=== PATIENT | female | born 1960 | race Caucasian/White ===

== ENCOUNTER 2025-02-17 09:12 | Inpatient (IN) ==
[2025-02-17 10:09] LABS: Basophils # (auto) 0.09 K/uL (0.00-0.20); Basophils % (auto) 0.9 %; Eosinophils # (auto) 0.08 K/uL (0.00-0.50); Eosinophils % (auto) 0.8 %; Hematocrit (blood only) 43.9 % (37.0-47.0); Hemoglobin 14.6 g/dl (12.0-16.0); Immature Granulocytes # (auto) 0.02 K/uL (0.01-0.20); Immature Granulocytes % (auto) 0.2 %; Lymphocytes # (auto) 4.76 K/uL (1.20-3.40); Lymphocytes % (auto) 46.3 %; Mean Corpuscular Hemoglobin 31.7 pg (25.0-34.0); Mean Corpuscular Hgb Conc 33.3 g/dL (32.0-36.0); Mean Corpuscular Volume 95.2 fL (80.0-100.0); Mean Platelet Volume 11.4 fL (9.4-12.4); Monocytes # (auto) 1.09 K/uL (0.11-0.59); Monocytes % (auto) 10.6 %; Neutrophils # (auto) 4.25 K/uL (1.40-6.50); Neutrophils % (auto) 41.2 %; Platelet Count 286 K/uL (130-400); RDW Coefficient of Variation 13.8 % (11.5-14.5); RDW Standard Deviation 48.7 fL (36.4-46.3); Red Blood Count 4.61 M/uL (4.20-5.40); White Blood Count 10.29 K/ul (4.8-10.8)
--- NOTE | 2025-02-17 10:11 | Electrocardiogram Report ---
Test Reason : Blood Pressure : */* mmHG Vent. Rate : 94 BPM Atrial Rate : 94 BPM P-R Int : 156 ms QRS Dur : 96 ms QT Int : 316 ms P-R-T Axes : 64 0 45 degrees QTcB Int : 395 ms Normal sinus rhythm Cannot rule out Anterior infarct , age undetermined Nonspecific ST abnormality Abnormal ECG When compared with ECG of 14-Dec-2009 09:30, No significant change Confirmed by Vaibhav Monterroso ([id number]) on 02/17/2025 10:10:53 AM Referred By: Confirmed By: Vaibhav Monterroso
--- NOTE | 2025-02-17 10:30 | Emergency Department Note ---
Impression & Plan SVT (supraventricular tachycardia), Elevated troponin ED Provider Note NAME: ALISSON CAMILO AGE: 64 SEX: F : 1960 ARRIVES VIA: Walk-In INFORMANT: Patient, ED PROVIDER(S): Shanika Hampton MD CHIEF COMPLAINT: Tachycardia, palpitations HPI: This is a 64-year-old female presenting for tachycardia and palpitations. Patient reports that she began having mid back pain about 3 to 4 days ago. This in her upper back between her shoulder blades. It is somewhat left-sided but mostly in the center. It is a sharp hot sensation. She reports no anterior chest pain with this. She reports no shortness of breath. Today about 1 hour prior to arrival, she noticed significant tachycardia and palpitations. This never happened to this extent. She has had simple palpitations lasting few seconds, this has persisted. She is not feel short of breath however. No current chest pain. ROS: See above HPI for pertinent positives & negatives. A total of 10 systems reviewed and were otherwise negative. PAST MEDICAL HISTORY: See Below PAST SURGICAL HISTORY: See Below FAMILY HISTORY: See Below SOCIAL HISTORY: See Below HOME MEDICATIONS: See Below ALLERGIES: See Below VITALS: See Below PHYSICAL EXAMINATION: General: resting comfortably in no acute distress Head: Normocephalic and atraumatic Eyes: Normal inspection, extraocular muscles intact Ear, nose, throat: Normal external exam Neck: Normal range of motion Respiratory: lungs clear to auscultation bilaterally Cardiovascular: Regular rate/rhythm, no murmur GI: soft, nontender, no guarding or rebound Extremities: nontender, moves all extremities Neuro: The patient awake and alert, appropriately conversive, no focal deficits, symmetric faces Skin: Warm, dry, and intact MEDICAL DECISION MAKING: This is a 64-year-old female present for tachycardia/palpitations. Patient is currently in SVT rhythm between 180 and 205. We have her maneuvers attempted without success. -Patient has no cardiac history or previous episodes of tachycardia/ACS/PE. -Will trial adenosine, 6 mg. Verbal consent obtained, patient then given 6 mg IV adenosine with conversion to sinus rhythm. -Patient now feels much better but still has this back pain. Will do screening workup that includes blood work, electrolytes, EKG and chest x-ray. -Bloodwork is reviewed showing no significant leukocytosis, anemia, electrolyte or creatinine abnormality -Repeat troponin is elevated at 16.8, up from previous of 4 -Patient then went back into SVT at a rate between 180 and 200. -Give another 6 mg of adenosine with sinus conversion -With patient having 2 episodes of SVT, elevated troponin, back pain for the past few days, will admit for cardiac and further testing workup Differential diagnosis: SVT, tachydysrhythmia, ACS Independent History obtained from: Diagnostics interpreted by me: ECG: ECG independently interpreted by me with SVT, rate of 179, normal QRS, normal QTc, no ST segment elevations consistent with STEMI criteria, ST depressions in the inferolateral leads Second ECG independently interpreted by me with normal sinus rhythm, rate of 94, normal axis, normal ME, normal QRS, normal QTc, no ST segment elevations consistent with STEMI criteria, resolved ST depressions Cardiac Monitoring: An order was placed for continuous cardiac monitoring. The monitor shows a rate of 70 with sinus rhythm. Critical Care Note: I have personally spent 45 minutes of critical care time in the direct management of this patient. This includes bedside care, interpretation of diagnostic studies, and testing, discussion with consultants, patient, and family members, and other required patient management activities. This 45 minutes is in excess of all separately billable procedures. Past Med/Surg History Problem List (Updated 02/17/25 @ 17:08 by Shanika Hampton MD) Elevated troponin (Acute) SVT (supraventricular tachycardia) (Acute) Medical History (Updated 02/17/25 @ 17:08 by Shanika Hampton MD) No pertinent past medical history Surgical History (Updated 02/17/25 @ 15:18 by Pieter Jensen MD) History of removal of cyst Lower back H/O emergency section Social History Smoking Status: Never smoker Preferred Language: Urdu Feels Safe at Home: Yes Allergies Allergies Allergy/AdvReac Type Severity Reaction Status Date / Time No Known Allergies Allergy Verified 02/17/25 15:14 Home Meds Home Medications Medication Instructions Recorded Confirmed aspirin 325 mg tablet 325 mg PO DIRECTED PRN PAIN/OJHNSON 02/17/25 02/17/25 Results & Data (ED) Vital Signs Vital Signs - 24 hr 02/17/25 09:15 02/17/25 09:23 02/17/25 09:24 Temperature 36.6 C Temperature Source Temporal Artery Scan Pulse Rate 180 H 167 H Pulse Rate [Apical] Pulse Rate from SpO2 Sensor Respiratory Rate 20 Respiratory Effort / Characteristics Spontaneous Short of Breath Respiratory Depth Normal Blood Pressure 148/80 H 170/111 H Blood Pressure [Right Arm] Blood Pressure Mean 102 140 Blood Pressure Mean [Right Arm] Pulse Oximetry 98 Oxygen Delivery Method Room Air Sepsis Recent Fever Within 48 Hours No Sepsis New/Unexplained Change in Mental Status N/A Sepsis Action Taken by Nursing No Action Required 02/17/25 09:24 02/17/25 09:30 02/17/25 09:30 Temperature Temperature Source Pulse Rate 183 H 100 H Pulse Rate [Apical] Pulse Rate from SpO2 Sensor 181 H 101 H Respiratory Rate 19 14 Respiratory Effort / Characteristics Respiratory Depth Blood Pressure 170/90 H Blood Pressure [Right Arm] Blood Pressure Mean 118 Blood Pressure Mean [Right Arm] Pulse Oximetry 99 99 Oxygen Delivery Method Sepsis Recent Fever Within 48 Hours Sepsis New/Unexplained Change in Mental Status Sepsis Action Taken by Nursing 02/17/25 09:30 02/17/25 09:34 02/17/25 09:43 Temperature Temperature Source Pulse Rate 75 Pulse Rate [Apical] Pulse Rate from SpO2 Sensor Respiratory Rate Respiratory Effort / Characteristics Respiratory Depth Blood Pressure 170/90 H Blood Pressure [Right Arm] Blood Pressure Mean 118 Blood Pressure Mean [Right Arm] Pulse Oximetry 100 Oxygen Delivery Method Room Air Sepsis Recent Fever Within 48 Hours Sepsis New/Unexplained Change in Mental Status Sepsis Action Taken by Nursing 02/17/25 09:45 02/17/25 09:45 02/17/25 09:45 Temperature Temperature Source Pulse Rate 75 Pulse Rate [Apical] Pulse Rate from SpO2 Sensor 75 Respiratory Rate 15 Respiratory Effort / Characteristics Respiratory Depth Blood Pressure 139/78 139/78 Blood Pressure [Right Arm] Blood Pressure Mean 81 81 Blood Pressure Mean [Right Arm] Pulse Oximetry 99 Oxygen Delivery Method Sepsis Recent Fever Within 48 Hours Sepsis New/Unexplained Change in Mental Status Sepsis Action Taken by Nursing 02/17/25 09:51 02/17/25 09:55 02/17/25 09:57 Temperature Temperature Source Pulse Rate 69 Pulse Rate [Apical] 69 Pulse Rate from SpO2 Sensor 69 Respiratory Rate 18 18 Respiratory Effort / Characteristics Non-Labored Respiratory Depth Normal Blood Pressure Blood Pressure [Right Arm] 139/78 Blood Pressure Mean Blood Pressure Mean [Right Arm] 98 Pulse Oximetry 99 98 99 Oxygen Delivery Method Room Air Room Air Sepsis Recent Fever Within 48 Hours Sepsis New/Unexplained Change in Mental Status Sepsis Action Taken by Nursing 02/17/25 10:00 02/17/25 10:00 02/17/25 10:00 Temperature Temperature Source Pulse Rate Pulse Rate [Apical] Pulse Rate from SpO2 Sensor Respiratory Rate Respiratory Effort / Characteristics Respiratory Depth Blood Pressure 144/73 H 144/73 H 144/73 H Blood Pressure [Right Arm] Blood Pressure Mean 98 98 98 Blood Pressure Mean [Right Arm] Pulse Oximetry Oxygen Delivery Method Sepsis Recent Fever Within 48 Hours Sepsis New/Unexplained Change in Mental Status Sepsis Action Taken by Nursing 02/17/25 10:03 02/17/25 10:09 02/17/25 10:15 Temperature Temperature Source Pulse Rate 74 70 Pulse Rate [Apical] Pulse Rate from SpO2 Sensor 72 71 Respiratory Rate 15 15 Respiratory Effort / Characteristics Respiratory Depth Blood Pressure 138/77 Blood Pressure [Right Arm] Blood Pressure Mean 105 Blood Pressure Mean [Right Arm] Pulse Oximetry 98 98 Oxygen Delivery Method Sepsis Recent Fever Within 48 Hours Sepsis New/Unexplained Change in Mental Status Sepsis Action Taken by Nursing 02/17/25 10:27 02/17/25 10:30 02/17/25 10:30 Temperature Temperature Source Pulse Rate 66 Pulse Rate [Apical] Pulse Rate from SpO2 Sensor 65 Respiratory Rate 19 Respiratory Effort / Characteristics Respiratory Depth Blood Pressure 133/77 133/77 Blood Pressure [Right Arm] Blood Pressure Mean 93 93 Blood Pressure Mean [Right Arm] Pulse Oximetry 99 Oxygen Delivery Method Sepsis Recent Fever Within 48 Hours Sepsis New/Unexplained Change in Mental Status Sepsis Action Taken by Nursing 02/17/25 10:39 02/17/25 10:45 02/17/25 10:48 Temperature Temperature Source Pulse Rate 63 62 Pulse Rate [Apical] 62 Pulse Rate from SpO2 Sensor 62 63 Respiratory Rate 21 20 20 Respiratory Effort / Characteristics Non-Labored Respiratory Depth Normal Blood Pressure Blood Pressure [Right Arm] 133/75 Blood Pressure Mean Blood Pressure Mean [Right Arm] 94 Pulse Oximetry 98 98 99 Oxygen Delivery Method Room Air Sepsis Recent Fever Within 48 Hours Sepsis New/Unexplained Change in Mental Status Sepsis Action Taken by Nursing 02/17/25 11:00 02/17/25 11:00 02/17/25 11:00 Temperature Temperature Source Pulse Rate 58 L Pulse Rate [Apical] Pulse Rate from SpO2 Sensor 58 L Respiratory Rate 14 Respiratory Effort / Characteristics Respiratory Depth Blood Pressure 135/79 135/79 Blood Pressure [Right Arm] Blood Pressure Mean 110 110 Blood Pressure Mean [Right Arm] Pulse Oximetry 98 Oxygen Delivery Method Sepsis Recent Fever Within 48 Hours Sepsis New/Unexplained Change in Mental Status Sepsis Action Taken by Nursing 02/17/25 11:15 02/17/25 11:15 02/17/25 11:21 Temperature Temperature Source Pulse Rate 59 L 60 Pulse Rate [Apical] Pulse Rate from SpO2 Sensor 59 L 62 Respiratory Rate 13 19 Respiratory Effort / Characteristics Respiratory Depth Blood Pressure 135/80 Blood Pressure [Right Arm] Blood Pressure Mean 106 Blood Pressure Mean [Right Arm] Pulse Oximetry 98 99 Oxygen Delivery Method Sepsis Recent Fever Within 48 Hours Sepsis New/Unexplained Change in Mental Status Sepsis Action Taken by Nursing 02/17/25 11:30 02/17/25 11:42 02/17/25 11:45 Temperature Temperature Source Pulse Rate 56 L Pulse Rate [Apical] Pulse Rate from SpO2 Sensor 57 L Respiratory Rate 17 Respiratory Effort / Characteristics Respiratory Depth Blood Pressure 135/79 132/78 Blood Pressure [Right Arm] Blood Pressure Mean 106 96 Blood Pressure Mean [Right Arm] Pulse Oximetry 98 Oxygen Delivery Method Sepsis Recent Fever Within 48 Hours Sepsis New/Unexplained Change in Mental Status Sepsis Action Taken by Nursing 02/17/25 11:45 02/17/25 11:45 02/17/25 11:54 Temperature Temperature Source Pulse Rate 53 L Pulse Rate [Apical] Pulse Rate from SpO2 Sensor 54 L Respiratory Rate 20 Respiratory Effort / Characteristics Respiratory Depth Blood Pressure 132/78 132/78 Blood Pressure [Right Arm] Blood Pressure Mean 96 96 Blood Pressure Mean [Right Arm] Pulse Oximetry 100 Oxygen Delivery Method Sepsis Recent Fever Within 48 Hours Sepsis New/Unexplained Change in Mental Status Sepsis Action Taken by Nursing 02/17/25 11:57 02/17/25 12:00 02/17/25 12:00 Temperature Temperature Source Pulse Rate 54 L Pulse Rate [Apical] Pulse Rate from SpO2 Sensor 53 L Respiratory Rate 15 Respiratory Effort / Characteristics Respiratory Depth Blood Pressure 144/83 H 144/83 H Blood Pressure [Right Arm] Blood Pressure Mean 111 111 Blood Pressure Mean [Right Arm] Pulse Oximetry 99 Oxygen Delivery Method Sepsis Recent Fever Within 48 Hours Sepsis New/Unexplained Change in Mental Status Sepsis Action Taken by Nursing 02/17/25 12:03 02/17/25 12:15 02/17/25 12:30 Temperature Temperature Source Pulse Rate 61 Pulse Rate [Apical] Pulse Rate from SpO2 Sensor 62 Respiratory Rate 23 Respiratory Effort / Characteristics Respiratory Depth Blood Pressure 146/80 H 144/80 H Blood Pressure [Right Arm] Blood Pressure Mean 101 99 Blood Pressure Mean [Right Arm] Pulse Oximetry 100 Oxygen Delivery Method Sepsis Recent Fever Within 48 Hours Sepsis New/Unexplained Change in Mental Status Sepsis Action Taken by Nursing 02/17/25 12:30 02/17/25 12:48 02/17/25 13:00 Temperature Temperature Source Pulse Rate 57 L 57 L 55 L Pulse Rate [Apical] Pulse Rate from SpO2 Sensor 57 L 56 L 55 L Respiratory Rate 16 16 21 Respiratory Effort / Characteristics Respiratory Depth Blood Pressure 143/86 H 136/87 Blood Pressure [Right Arm] Blood Pressure Mean 105 103 Blood Pressure Mean [Right Arm] Pulse Oximetry 99 100 99 Oxygen Delivery Method Sepsis Recent Fever Within 48 Hours Sepsis New/Unexplained Change in Mental Status Sepsis Action Taken by Nursing 02/17/25 13:15 02/17/25 13:30 02/17/25 13:30 Temperature Temperature Source Pulse Rate 69 187 H 182 H Pulse Rate [Apical] Pulse Rate from SpO2 Sensor 71 186 H Respiratory Rate 22 17 Respiratory Effort / Characteristics Respiratory Depth Blood Pressure 157/97 H 149/102 H Blood Pressure [Right Arm] Blood Pressure Mean 117 117 Blood Pressure Mean [Right Arm] Pulse Oximetry 100 98 Oxygen Delivery Method Sepsis Recent Fever Within 48 Hours Sepsis New/Unexplained Change in Mental Status Sepsis Action Taken by Nursing 02/17/25 13:35 02/17/25 13:35 02/17/25 13:35 Temperature Temperature Source Pulse Rate Pulse Rate [Apical] Pulse Rate from SpO2 Sensor Respiratory Rate Respiratory Effort / Characteristics Respiratory Depth Blood Pressure 153/122 H 153/122 H 153/122 H Blood Pressure [Right Arm] Blood Pressure Mean 142 142 142 Blood Pressure Mean [Right Arm] Pulse Oximetry Oxygen Delivery Method Sepsis Recent Fever Within 48 Hours Sepsis New/Unexplained Change in Mental Status Sepsis Action Taken by Nursing 02/17/25 13:42 02/17/25 13:42 02/17/25 13:42 Temperature Temperature Source Pulse Rate 122 H Pulse Rate [Apical] Pulse Rate from SpO2 Sensor 116 H Respiratory Rate 17 Respiratory Effort / Characteristics Respiratory Depth Blood Pressure 173/92 H 173/92 H 173/92 H Blood Pressure [Right Arm] Blood Pressure Mean 109 109 119 Blood Pressure Mean [Right Arm] Pulse Oximetry 98 Oxygen Delivery Method Sepsis Recent Fever Within 48 Hours Sepsis New/Unexplained Change in Mental Status Sepsis Action Taken by Nursing 02/17/25 13:48 02/17/25 13:50 02/17/25 13:50 Temperature Temperature Source Pulse Rate 70 Pulse Rate [Apical] Pulse Rate from SpO2 Sensor 70 Respiratory Rate 19 Respiratory Effort / Characteristics Respiratory Depth Blood Pressure 166/91 H 161/93 H 161/93 H Blood Pressure [Right Arm] Blood Pressure Mean 116 116 116 Blood Pressure Mean [Right Arm] Pulse Oximetry 100 Oxygen Delivery Method Sepsis Recent Fever Within 48 Hours Sepsis New/Unexplained Change in Mental Status Sepsis Action Taken by Nursing 02/17/25 13:50 02/17/25 13:50 02/17/25 13:54 Temperature Temperature Source Pulse Rate 74 Pulse Rate [Apical] Pulse Rate from SpO2 Sensor 74 Respiratory Rate 14 Respiratory Effort / Characteristics Respiratory Depth Blood Pressure 161/93 H 161/93 H Blood Pressure [Right Arm] Blood Pressure Mean 116 116 Blood Pressure Mean [Right Arm] Pulse Oximetry 100 Oxygen Delivery Method Sepsis Recent Fever Within 48 Hours Sepsis New/Unexplained Change in Mental Status Sepsis Action Taken by Nursing 02/17/25 13:55 02/17/25 14:00 02/17/25 14:00 Temperature Temperature Source Pulse Rate 69 Pulse Rate [Apical] Pulse Rate from SpO2 Sensor 69 Respiratory Rate 21 Respiratory Effort / Characteristics Respiratory Depth Blood Pressure 149/95 H 162/90 H Blood Pressure [Right Arm] Blood Pressure Mean 119 109 Blood Pressure Mean [Right Arm] Pulse Oximetry 99 Oxygen Delivery Method Sepsis Recent Fever Within 48 Hours Sepsis New/Unexplained Change in Mental Status Sepsis Action Taken by Nursing 02/17/25 14:05 02/17/25 14:05 02/17/25 14:05 Temperature Temperature Source Pulse Rate Pulse Rate [Apical] Pulse Rate from SpO2 Sensor Respiratory Rate Respiratory Effort / Characteristics Respiratory Depth Blood Pressure 168/88 H 168/88 H 168/88 H Blood Pressure [Right Arm] Blood Pressure Mean 101 101 101 Blood Pressure Mean [Right Arm] Pulse Oximetry Oxygen Delivery Method Sepsis Recent Fever Within 48 Hours Sepsis New/Unexplained Change in Mental Status Sepsis Action Taken by Nursing 02/17/25 14:09 02/17/25 14:15 02/17/25 14:20 Temperature Temperature Source Pulse Rate 69 Pulse Rate [Apical] Pulse Rate from SpO2 Sensor 68 Respiratory Rate 14 Respiratory Effort / Characteristics Respiratory Depth Blood Pressure 147/95 H 147/95 H 151/89 H Blood Pressure [Right Arm] Blood Pressure Mean 112 114 117 Blood Pressure Mean [Right Arm] Pulse Oximetry 99 Oxygen Delivery Method Sepsis Recent Fever Within 48 Hours Sepsis New/Unexplained Change in Mental Status Sepsis Action Taken by Nursing 02/17/25 14:21 02/17/25 14:54 02/17/25 15:09 Temperature Temperature Source Pulse Rate 69 84 77 Pulse Rate [Apical] Pulse Rate from SpO2 Sensor 71 73 Respiratory Rate 22 16 18 Respiratory Effort / Characteristics Respiratory Depth Blood Pressure 156/94 H 146/90 H Blood Pressure [Right Arm] Blood Pressure Mean 114 108 Blood Pressure Mean [Right Arm] Pulse Oximetry 100 98 Oxygen Delivery Method Sepsis Recent Fever Within 48 Hours Sepsis New/Unexplained Change in Mental Status Sepsis Action Taken by Nursing 02/17/25 15:15 02/17/25 15:30 Temperature Temperature Source Pulse Rate 75 70 Pulse Rate [Apical] Pulse Rate from SpO2 Sensor 75 69 Respiratory Rate 14 20 Respiratory Effort / Characteristics Respiratory Depth Blood Pressure 170/86 H Blood Pressure [Right Arm] Blood Pressure Mean 114 Blood Pressure Mean [Right Arm] Pulse Oximetry 98 99 Oxygen Delivery Method Sepsis Recent Fever Within 48 Hours Sepsis New/Unexplained Change in Mental Status Sepsis Action Taken by Nursing Laboratory Data 02/17/25 09:30 02/17/25 09:30 Lab Results 02/17/25 02/17/25 Range/Units 09:30 12:00 WBC 10.29 (4.8-10.8) K/ul RBC 4.61 (4.20-5.40) M/uL Hgb 14.6 (12.0-16.0) g/dl Hct 43.9 (37.0-47.0) % MCV 95.2 (80.0-100.0) fL MCH 31.7 (25.0-34.0) pg MCHC 33.3 (32.0-36.0) g/dL RDW Std Deviation 48.7 H (36.4-46.3) fL RDW Coeff of [place] 13.8 (11.5-14.5) % Plt Count 286 (130-400) K/uL MPV 11.4 (9.4-12.4) fL Immature Gran % (Auto) 0.2 % Neut % (Auto) 41.2 % Lymph % (Auto) 46.3 % [place] % (Auto) 10.6 % Eos % (Auto) 0.8 % Baso % (Auto) 0.9 % Neut # (Auto) 4.25 (1.40-6.50) K/uL Lymph # (Auto) 4.76 H (1.20-3.40) K/uL [place] # (Auto) 1.09 H (0.11-0.59) K/uL Eos # (Auto) 0.08 (0.00-0.50) K/uL Baso # (Auto) 0.09 (0.00-0.20) K/uL Immature Gran # (Auto) 0.02 (0.01-0.20) K/uL Sodium 138 (136-145) mmol/L Potassium 3.9 (3.5-5.1) mmol/L Chloride 100 (98-107) mmol/L Carbon Dioxide 25 (21-32) mmol/L Anion Gap 13 H (3-11) BUN 13 (6-23) mg/dl Creatinine 0.89 (0.6-1.2) mg/dl Est Cr Clr Drug Dosing 65.0 ml/min eGFR 71.46 BUN/Creatinine Ratio 14.6 (10-20) Glucose 108 H (70-99(Fasting)) mg/dl Calcium 10.2 (8.6-10.3) mg/dl Magnesium 1.8 (1.7-2.4) mg/dl Total Bilirubin 0.5 (0.2-1.0) mg/dl AST 27 (13-39) U/L ALT 19 (7-52) U/L Alkaline Phosphatase 78 (34-104) U/L Troponin I High Sens 4.2 16.8 H D (0-14) pg/ml Total Protein 8.2 (6.0-8.3) gm/dl Albumin 5.0 (3.4-5.0) gm/dl Globulin 3.2 (2.5-4.0) gm/dl Albumin/Globulin Ratio 1.6 (0.9-2) Lipase 48 (11-82) U/L Administered Medications Discontinued Medications Adenosine (Adenosine Iv Soln 3 Mg/Ml 2 Ml Vial) Confirm Administered Dose 18 mg IV .STK-MED ONE Stop: 02/17/25 09:25 Last Admin: 02/17/25 10:47 Dose: Not Given Documented By: MMG Adenosine (Adenosine Iv Soln 3 Mg/Ml 2 Ml Vial) 6 mg IV NOW STA Stop: 02/17/25 10:47 Last Admin: 02/17/25 10:47 Dose: 6 mg Documented By: MMG Adenosine (Adenosine Iv Soln 3 Mg/Ml 2 Ml Vial) 6 mg IV NOW STA Stop: 02/17/25 13:46 Last Admin: 02/17/25 13:45 Dose: 6 mg Documented By: BS Amoxicillin/Clavulanate Potassium (Amoxicillin/Clavulanate 875 Mg Tab) 1 tab PO NOW ONE; Protocol Stop: 02/17/25 12:24 Last Admin: 02/17/25 13:05 Dose: Not Given Documented By: BS Imaging Data Radiologist's Impression: Chest X-Ray 02/17/25 09:35 XR chest 1V portable CLINICAL HISTORY: Chest pain, nonspecific COMPARISON STUDY: 12/18/2009 FINDINGS: There is mild cardiomegaly without pulmonary vascular congestion. Lungs are mildly hyperexpanded. No effusion, consolidation, or pneumothorax. IMPRESSION: No acute findings. ACT 112: Negative or not required by law. Electronically signed by: Tristin Cedillo M.D. 02/17/2025 10:32 AM Discharge Plan Visit Data Chief Complaint: Arrhythmia/Palpitations Stated Complaint: HEART PALPS, SOB, SHARP BACK PAIN ED Provider: Shanika Hampton Discharge Problem: SVT (supraventricular tachycardia), Elevated troponin Forms Stand Alone Forms: [facility] Prescriptions Prescriptions: No Action aspirin 325 mg Tablet 325 mg PO DIRECTED PRN (Reason: PAIN/JOHNSON) Referrals Referrals: Kate Rodriguez [Primary Care Provider] -
--- NOTE | 2025-02-17 10:34 | XRay Report ---
XR chest 1V portable CLINICAL HISTORY: Chest pain, nonspecific COMPARISON STUDY: 12/18/2009 FINDINGS: There is mild cardiomegaly without pulmonary vascular congestion. Lungs are mildly hyperexp anded. No effusion, consolidation, or pneumothorax. IMPRESSION: No acute findings. ACT 112: Negative or not required by law. Electronically signed by: Tristin Cedillo M.D. 02/17/2025 10:32 AM
[2025-02-17] MEDS: ADENOSINE IV SOLN 3 MG/ML 2 ML VIAL IV STA ×2 (10:47→13:45)
[2025-02-17] MEDS: ADENOSINE IV SOLN 3 MG/ML 2 ML VIAL IV ONE (10:47)
[2025-02-17 10:58] LABS: Albumin Globulin Ratio 1.6 (0.9-2); BUN Creatinine Ratio 14.6 (10-20); Bilirubin,Total 0.5 mg/dl (0.2-1.0); Calcium 10.2 mg/dl (8.6-10.3); Globulin 3.2 gm/dl (2.5-4.0); Potassium 3.9 mmol/L (3.5-5.1); Total Protein 8.2 gm/dl (6.0-8.3)
[2025-02-17 11:02] LABS: Troponin I High Sensitivity 4.2 pg/ml (0-14)
[2025-02-17 12:57] LABS: Troponin I High Sensitivity 16.8 pg/ml (0-14)
[2025-02-17] MEDS: AMOXICILLIN/CLAVULANATE 875 MG TAB PO ONE (13:05)
--- NOTE | 2025-02-17 15:03 | History & Physical Report ---
Date of Service February 17, 2025 Assessment & Plan (1) No pertinent past medical history: (2) H/O emergency section: (3) History of removal of cyst: (4) SVT (supraventricular tachycardia): Plan 64 year old presents to the ER with supraventricular tachycardia terminated with adenosine in the ER, went back into SVT again and terminated with adenosine again #Supraventricular tachycardia Likely exacerbated by stress (more acutely), caffeine and alcohol - discussed if reducing these may able to avoid medication/ablation therefore will avoid starting metoprolol Add magnesium level, K 3.9 TTE Consult cardiology If she goes back into SVT overnight, trial vagal manoeuvres but if not successful use adenosine and consider starting metoprolol VTE Prophylaxis - low risk Disposition - admit to PCU Admission and Anticipated Discharge Date Admission Date: February 17, 2025 History of Present Illness Chief Complaint: Palpitations Primary Care Provider: Kate Rodriguez Tesha Wilkinson is a 64 year old female who presents to the ER with palpitations. She reports 3-4 days of heavy pain feeling like a hot fist between her shoulders. This morning she had heart palpitations starting at 8am. Improved on walking around but didn't fully go away and came on with worsening of this heavy back pain. She was diagnosed with SVT while in the ER which was terminated by adenosine 6mg IV. She went back into SVT and again required adenosine to terminate the rhythm back to NSR. She is currently in NSR and is symptom free. She is not diabetic. Non-smoker. No prior arrhythmia or cardiac history. She took 325mg aspirin this morning. Allergies Allergy/AdvReac Type Severity Reaction Status Date / Time No Known Allergies Allergy Verified 02/17/25 15:14 Home Medications Medication Instructions Recorded Confirmed Type aspirin 325 mg tablet 325 mg PO DIRECTED PRN PAIN/JOHNSON 02/17/25 02/17/25 History Past Med/Surg History Problem List (Updated 02/17/25 @ 17:08 by Shanika Hampton MD) Elevated troponin (Acute) SVT (supraventricular tachycardia) (Acute) Medical History (Updated 02/17/25 @ 17:08 by Shanika Hampton MD) No pertinent past medical history Surgical History (Updated 02/17/25 @ 15:18 by Pieter Jensen MD) History of removal of cyst Lower back H/O emergency section Social History Smoking Status: Never smoker Hx Alcohol Use: Yes Alcohol type: wine Hx Substance Use: No Preferred Language: Lao Communication Ability: Effective Surgery Scheduling Coordinator Required: No Beliefs That Will Affect Care: None Current Living Situation: Spouse Feels Safe at Home: Yes Assistive Devices: None Review of Systems Review of Systems: All systems reviewed & are unremarkable except as noted in HPI & below Physical Exam Constitutional: WD/WN, vitals as above Respiratory: normal respiratory effort, lungs clear to auscultation Cardiovascular: RRR, no murmur, no edema Gastrointestinal (Abdomen): normal bowel sounds, soft, nontender, no hepatosplenomegaly Musculoskeletal: no cyanosis or clubbing, extremities motor strength 5/5 Skin: no rashes, warm and dry Results & Data Results & Data Vital Signs (Past 12 Hours) Vital Signs Temp Pulse Pulse Resp BP BP Pulse Ox 02/17/25 14:20 151/89 H 02/17/25 14:15 147/95 H 02/17/25 14:09 69 14 147/95 H 99 02/17/25 14:05 168/88 H 02/17/25 14:05 168/88 H 02/17/25 14:05 168/88 H 02/17/25 14:00 69 21 99 02/17/25 14:00 162/90 H 02/17/25 13:55 149/95 H 02/17/25 13:54 74 14 100 02/17/25 13:50 161/93 H 02/17/25 13:50 161/93 H 02/17/25 13:50 161/93 H 02/17/25 13:50 161/93 H 02/17/25 13:48 70 19 166/91 H 100 02/17/25 13:42 122 H 17 173/92 H 98 02/17/25 13:42 173/92 H 02/17/25 13:42 173/92 H 02/17/25 13:35 153/122 H 02/17/25 13:35 153/122 H 02/17/25 13:35 153/122 H 02/17/25 13:30 182 H 02/17/25 13:30 187 H 17 149/102 H 98 02/17/25 13:15 69 22 157/97 H 100 02/17/25 13:00 55 L 21 136/87 99 02/17/25 12:48 57 L 16 143/86 H 100 02/17/25 12:30 57 L 16 99 02/17/25 12:30 144/80 H 02/17/25 12:15 146/80 H 02/17/25 12:03 61 23 100 02/17/25 12:00 144/83 H 02/17/25 12:00 144/83 H 02/17/25 11:57 54 L 15 99 02/17/25 11:54 53 L 20 100 02/17/25 11:45 132/78 02/17/25 11:45 132/78 02/17/25 11:45 132/78 02/17/25 11:42 56 L 17 98 02/17/25 11:30 135/79 02/17/25 11:21 60 19 99 02/17/25 11:15 135/80 02/17/25 11:15 59 L 13 98 02/17/25 11:00 135/79 02/17/25 11:00 135/79 02/17/25 11:00 58 L 14 98 02/17/25 10:48 62 20 133/75 99 02/17/25 10:45 62 20 98 02/17/25 10:39 63 21 98 02/17/25 10:30 133/77 02/17/25 10:30 133/77 02/17/25 10:27 66 19 99 02/17/25 10:15 138/77 02/17/25 10:09 70 15 98 02/17/25 10:03 74 15 98 02/17/25 10:00 144/73 H 02/17/25 10:00 144/73 H 02/17/25 10:00 144/73 H 02/17/25 09:57 69 18 99 02/17/25 09:55 69 18 139/78 98 02/17/25 09:51 99 02/17/25 09:45 139/78 02/17/25 09:45 139/78 02/17/25 09:45 75 15 99 02/17/25 09:43 75 02/17/25 09:34 100 02/17/25 09:30 170/90 H 02/17/25 09:30 170/90 H 02/17/25 09:30 100 H 14 99 02/17/25 09:24 183 H 19 99 02/17/25 09:24 167 H 02/17/25 09:23 170/111 H 02/17/25 09:15 36.6 C 180 H 20 148/80 H 98 O2 Del Method 02/17/25 14:20 02/17/25 14:15 02/17/25 14:09 02/17/25 14:05 02/17/25 14:05 02/17/25 14:05 02/17/25 14:00 02/17/25 14:00 02/17/25 13:55 02/17/25 13:54 02/17/25 13:50 02/17/25 13:50 02/17/25 13:50 02/17/25 13:50 02/17/25 13:48 02/17/25 13:42 02/17/25 13:42 02/17/25 13:42 02/17/25 13:35 02/17/25 13:35 02/17/25 13:35 02/17/25 13:30 02/17/25 13:30 02/17/25 13:15 02/17/25 13:00 02/17/25 12:48 02/17/25 12:30 02/17/25 12:30 02/17/25 12:15 02/17/25 12:03 02/17/25 12:00 02/17/25 12:00 02/17/25 11:57 02/17/25 11:54 02/17/25 11:45 02/17/25 11:45 02/17/25 11:45 02/17/25 11:42 02/17/25 11:30 02/17/25 11:21 02/17/25 11:15 02/17/25 11:15 02/17/25 11:00 02/17/25 11:00 02/17/25 11:00 02/17/25 10:48 Room Air 02/17/25 10:45 02/17/25 10:39 02/17/25 10:30 02/17/25 10:30 02/17/25 10:27 02/17/25 10:15 02/17/25 10:09 02/17/25 10:03 02/17/25 10:00 02/17/25 10:00 02/17/25 10:00 02/17/25 09:57 02/17/25 09:55 Room Air 02/17/25 09:51 Room Air 02/17/25 09:45 02/17/25 09:45 02/17/25 09:45 02/17/25 09:43 02/17/25 09:34 Room Air 02/17/25 09:30 02/17/25 09:30 02/17/25 09:30 02/17/25 09:24 02/17/25 09:24 02/17/25 09:23 02/17/25 09:15 Room Air Laboratory Results Abnormal lab results 02/17/25 02/17/25 Range/Units 09:30 12:00 RDW Std Deviation 48.7 H (36.4-46.3) fL Lymph # (Auto) 4.76 H (1.20-3.40) K/uL Trigg # (Auto) 1.09 H (0.11-0.59) K/uL Anion Gap 13 H (3-11) Glucose 108 H (70-99(Fasting)) mg/dl Troponin I High Sens 16.8 H D (0-14) pg/ml Diagnostic Findings XR chest 1V portable CLINICAL HISTORY: Chest pain, nonspecific COMPARISON STUDY: 12/18/2009 FINDINGS: There is mild cardiomegaly without pulmonary vascular congestion. Lungs are mildly hyperexpanded. No effusion, consolidation, or pneumothorax. IMPRESSION: No acute findings. Medications Administered ER Medications Given: Adenosine 6mg IV Adenosine 6mg IV ECG Rate (beats per minute): 94 Rhythm: normal sinus Findings: + nonspecific-ST abn Comparison ECG Date: from (Dec 14, 2009) Change: no significant change Code Status & VTE Plan Code Status Full VTE Prophylaxis Plan VTE Prophylaxis will be ordered: No PG Care Time/CCT Total # of Minutes Spent Total Time Spent with Patient: Total time spent is greater than 50% in coordination of care (as documented) at patient's floor/unit and/or counseling patient: Coding Level of Care Code 27158 INT INP/OBS CARE 2/55MIN Diagnoses No pertinent past medical history Z78.9 H/O emergency section Z98.891 History of removal of cyst Z98.890 SVT (supraventricular tachycardia) I47.10
[2025-02-17 15:37] LABS: Magnesium 1.8 mg/dl (1.7-2.4)
--- NOTE | 2025-02-17 15:50 | XCELERA ---
[id number]
[2025-02-18 03:21] LABS: Appearance Urine Clear (Clear); Bacteria Urine Automated None Seen (None Seen); Bilirubin Urine Negative (Negative); Blood Urine Negative (Negative); Cast Urine Automated 0-2 /lpf (0-2); Color Urine Yellow; Epithelial Cell Urine Auto 0-2 /hpf (0-2); Glucose Urine UA Negative (Negative); Ketones Urine 1+ (Negative); Leukocyte Esterase Urine 2+ (Negative); Mucus Urine Present (None Prsent); Nitrite Urine Negative (Negative); Protein Urine Negative (Negative); RBC Urine Automated 0-2 /hpf (0-2); Specific Gravity Urine 1.025 (1.000-1.030); Urobilinogen Urine Negative (Negative); pH Urine 5.5 (4.5-7.5)
[2025-02-18 07:32] VITALS: RESP 16
[2025-02-18 07:40] LABS: Hematocrit (blood only) 38.8 % (37.0-47.0); Hemoglobin 13.2 g/dl (12.0-16.0); Mean Corpuscular Hemoglobin 31.4 pg (25.0-34.0); Mean Corpuscular Volume 92.2 fL (80.0-100.0); Mean Platelet Volume 11.3 fL (9.4-12.4); Platelet Count 257 K/uL (130-400); RDW Coefficient of Variation 13.7 % (11.5-14.5); RDW Standard Deviation 46.5 fL (36.4-46.3); Red Blood Count 4.21 M/uL (4.20-5.40); White Blood Count 7.81 K/ul (4.8-10.8)
[2025-02-18 07:56] LABS: BUN Creatinine Ratio 15.9 (10-20); Calcium 9.2 mg/dl (8.6-10.3); Creatinine Clr Calc Pharmacy 83.8 ml/min; Magnesium 1.8 mg/dl (1.7-2.4); Potassium 3.9 mmol/L (3.5-5.1)
[2025-02-18 08:07] LABS: Troponin I High Sensitivity 11.8 pg/ml (0-14)
--- NOTE | 2025-02-18 08:07 | Hospitalist Progress Note ---
Date of Service February 18, 2025 Assessment & Plan (1) No pertinent past medical history: (2) H/O emergency section: (3) History of removal of cyst: (4) SVT (supraventricular tachycardia): Plan 64 year old presents to the ER with supraventricular tachycardia terminated with adenosine in the ER, went back into SVT again and terminated with adenosine again #Supraventricular tachycardia Likely exacerbated by stress (more acutely), caffeine and alcohol - discussed if reducing these may able to avoid medication/ablation therefore will avoid starting metoprolol Add magnesium level, K 3.9 TTE Consult cardiology If she goes back into SVT overnight, trial vagal manoeuvres but if not successful use adenosine and consider starting metoprolol VTE Prophylaxis - low risk Disposition - admit to PCU Admission and Anticipated Discharge Date Admission Date: February 17, 2025 Results & Data Results & Data Vital Signs (Past 12 Hours) Vital Signs Temp Pulse Pulse Resp BP BP Pulse Ox 02/18/25 07:14 54 L 02/18/25 07:00 36.7 C 64 16 127/74 93 02/18/25 02:35 36.8 C 62 18 135/76 97 02/17/25 23:59 64 02/17/25 22:47 36.7 C 60 18 148/77 H 98 02/17/25 22:36 02/17/25 22:10 36.7 C 62 16 176/91 H 97 02/17/25 21:54 02/17/25 21:53 36.7 C 62 16 176/91 H 97 02/17/25 21:03 64 13 97 02/17/25 21:00 150/86 H 02/17/25 20:45 151/87 H 02/17/25 20:39 62 16 94 02/17/25 20:15 142/86 H Pulse Ox O2 Del Method O2 Del Method 02/18/25 07:14 02/18/25 07:00 Room Air 02/18/25 02:35 Room Air 02/17/25 23:59 02/17/25 22:47 Room Air 02/17/25 22:36 Room Air 02/17/25 22:10 Room Air 02/17/25 21:54 97 Room Air 02/17/25 21:53 Room Air 02/17/25 21:03 02/17/25 21:00 02/17/25 20:45 04/11/25 20:39 02/17/25 20:15 PG Care Time/CCT Total # of Minutes Spent Total Time Spent with Patient: Total time spent is greater than 50% in coordination of care (as documented) at patient's floor/unit and/or counseling patient: Coding Diagnoses No pertinent past medical history Z78.9 H/O emergency section Z98.891 History of removal of cyst Z98.890 SVT (supraventricular tachycardia) I47.10
[2025-02-18] MEDS: POTASSIUM CHLORIDE CRTAB 20 MEQ TABCR PO STA (08:53)
[2025-02-18] MEDS: MAGNESIUM OXIDE 400 MG TAB PO ONE (08:53)
[2025-02-18 11:12] VITALS: BP 145/84; PULSE 63; TEMP 98.2; O2SAT 97
--- NOTE | 2025-02-18 11:29 | Cardiology Consultation ---
Date of Consultation February 18, 2025 Assessment & Plan (1) SVT (supraventricular tachycardia): -Curious that she has never experienced this previously. -Instructed on use of vagal maneuvers. -Discussed the use of metoprolol to tartrate 25 mg as needed for her SVT. -Minor troponin elevation of no clinical concern. -Stable for hospital discharge. -I am happy to see her as an outpatient. History of Present Illness Attending Physician: Shalini Jenkins MD History of Present Illness Mrs. Wilkinson is a 64-year-old female admitted yesterday with a paroxysmal SVT. This consultation was ordered to assist in her management. The patient was in her usual state of health until approximately 3 to 4 days prior to presentation. She had a sensation of a "hot fist" between her scapulae that was constant. Then, on the day of discharge, she noticed sustained palpitations. After 30 minutes on, she decided to present to the emergency room for further care. On arrival here, patient noted to be in an SVT at 180 bpm. She was given 6 mg of intravenous adenosine and converted to sinus rhythm. Arrangements were being made for discharge from the emergency room when she had a second episode of her SVT. This also broke with 6 mg of intravenous adenosine. Because of her second event, hospitalization was recommended. The patient has never experienced sustained palpitations as she did yesterday. She has had intermittent short-lived palpitations often related to foods that she eats (MSG in particular). We have discussed the use of vagal maneuvers for her paroxysmal SVT. We have also discussed the use of metoprolol tartrate 25 Mg as needed. Currently, patient is resting comfortably in bed and without complaints. Allergies Allergy/AdvReac Type Severity Reaction Status Date / Time No Known Allergies Allergy Verified 02/17/25 15:14 Home Medications Medication Instructions Recorded Confirmed Type aspirin 325 mg tablet 325 mg PO DIRECTED PRN PAIN/JOHNSON 02/17/25 02/17/25 History Patient History Medical History (Updated 02/17/25 @ 17:08 by Shanika Hampton MD) No pertinent past medical history Surgical History (Updated 02/17/25 @ 15:18 by Pieter Jensen MD) History of removal of cyst Lower back H/O emergency section Social History Smoking Status: Never smoker Hx Alcohol Use: Yes Alcohol type: wine Hx Substance Use: No Preferred Language: Martiniquais Communication Ability: Effective Equipment Services Associate Required: No Beliefs That Will Affect Care: None Current Living Situation: Spouse Feels Safe at Home: Yes Assistive Devices: None Physical Exam Physical Exam: In general this is a well-developed well-nourished white female in no acute distress. HEENT exam is negative. Neck reveals normal carotid upstrokes without bruits. Jugular venous pressure is flat at 90. There is no thyromegaly. Cardiovascular exam reveals a regular rhythm with a normal S1 and S2. No S3, S4, or murmurs are noted. Lungs are clear without rales, rhonchi, or wheezes. Abdomen is soft without bruits. Extremities reveal intact radial artery and posterior tibial pulses bilaterally. There is no peripheral edema. Results & Data Vital Signs (Past 12 Hours) Vital Signs Temp Pulse Pulse Resp BP Pulse Ox O2 Del Method 02/18/25 11:12 36.8 C 63 16 145/84 H 97 Room Air 02/18/25 07:14 54 L 02/18/25 07:00 36.7 C 64 16 127/74 93 Room Air 02/18/25 02:35 36.8 C 62 18 135/76 97 Room Air 02/17/25 23:59 64 Laboratory Results Potassium level is normal at 3.9. Magnesium level is normal at 1.8. High- sensitivity troponin on presentation was 4.2 with follow-up values of 16.8, 27, and 12. Diagnostic Findings Initial EKG noted a supraventricular tachycardia with a diffuse ST abnormality. A second tracing noted sinus rhythm with a nonspecific ST abnormality. Echocardiogram notes normal left ventricular systolic function with ejection fraction of 60 to 65%. There is mild tricuspid regurgitation. No prior studies for comparison. Chest x-ray shows no acute disease. PG Care Time/CCT Total # of Minutes Spent Total Time Spent with Patient: Total time spent is greater than 50% in coordination of care (as documented) at patient's floor/unit and/or counseling patient: Coding Level of Care Code 37793 INT INP/OBS CARE 3/75MIN Diagnoses SVT (supraventricular tachycardia) I47.10
--- NOTE | 2025-02-18 12:37 | Electrocardiogram Report ---
Test Reason : Blood Pressure : */* mmHG Vent. Rate : 179 BPM Atrial Rate : * BPM P-R Int : * ms QRS Dur : 92 ms QT Int : 264 ms P-R-T Axes : * 15 207 degrees QTcB Int : 455 ms Supraventricular tachycardia Marked ST abnormality, possible inferolateral subendocardial injury Abnormal ECG When compared with ECG of 14-Dec-2009 09:30, Significant changes have occurred Confirmed by Ernesto Christine ([id number]) on 02/18/2025 12:37:13 PM Referred By: REFERRED SELF Confirmed By: Ernesto Christine
--- NOTE | 2025-02-18 12:40 | Discharge Summary ---
Discharge Summary Date of Service February 18, 2025 Principal Dx & Hospital Course #1 = Principal Diagnosis (1) No pertinent past medical history: (2) H/O emergency section: (3) History of removal of cyst: (4) SVT (supraventricular tachycardia): Plan Tesha Wilkinson is a 64 year old female who presents to the ER with palpitations. She reports 3-4 days of heavy pain feeling like a hot fist between her shoulders. This morning she had heart palpitations starting at 8am. Improved on walking around but didn't fully go away and came on with worsening of this heavy back pain. She was diagnosed with SVT while in the ER which was terminated by adenosine 6mg IV. She went back into SVT and again required adenosine to terminate the rhythm back to NSR. She is currently in NSR and is symptom free. She is not diabetic. Non-smoker. No prior arrhythmia or cardiac history. She took 325mg aspirin this morning. #Supraventricular tachycardia - Likely exacerbated by stress (more acutely), caffeine and alcohol - discussed if reducing these may able to avoid medication/ablation therefore will avoid starting metoprolol - pt was evaluated by cardiology, recommended vagal maneuvers (educated pt) and metoprolol prn - pt to follow up as outpatient with cardiology - pt to get Thyroid function test done as outpatient Admission HPI Per Admitting Provider Tesha Wilkinson is a 64 year old female who presents to the ER with palpitations. She reports 3-4 days of heavy pain feeling like a hot fist between her shoulders. This morning she had heart palpitations starting at 8am. Improved on walking around but didn't fully go away and came on with worsening of this heavy back pain. She was diagnosed with SVT while in the ER which was terminated by adenosine 6mg IV. She went back into SVT and again required adenosine to terminate the rhythm back to NSR. She is currently in NSR and is symptom free. She is not diabetic. Non-smoker. No prior arrhythmia or cardiac history. She took 325mg aspirin this morning. Discharge Plan Discharge Items Patient Disposition: Home - Self-Care Reason For Visit: SVT Discharge Diagnosis: svt Activity: Resume your previous activity Non-emergency contact: Primary Care Provider and Changer Fixer Call non-emergency contact if: you have any medication questions and your symptoms worsen Follow-up/Referrals: Ernesto Christine MD [Physician] - Kate Rodriguez [Primary Care Provider] - Dietitian Info: avoid caffeine, alcohol Diet: Regular Addtl Attending Provider Instructions: Please have your primary care physician order thyroid function test this week. Pending Studies at Discharge: No Stand-Alone Forms: [facility] Serviceful, Smoking Cessation Medications and DC Order Prescriptions: New metoprolol tartrate 25 mg tablet 25 mg PO DAILY PRN (Reason: for uncontrolled heart rate) Qty: 10 0RF Continued aspirin 325 mg Tablet 325 mg PO DIRECTED PRN (Reason: PAIN/JOHNSON) Discharge Orders: Discharge Order (Routine); Ordered 02/18/25 Ordered By: Shalini Jenkins Admission Data Admit Date/Time: 02/17/25 15:29 Attending Provider: Shalini Jenkins Admit Provider: Pieter Jensen Primary Care Provider: Kate Rodriguez Other Providers: Pieter Jensen; Ernesto Christine Hospital Stay Data Consultations 02/17/25 14:08 ED Decision to Admit Stat 02/17/25 14:24 Consult Cardiology Routine Discharge Instructions Given to Patient (Per Discharging Provider) Please have your primary care physician order thyroid function test this week. Total Time Total Time Spent Total Time Spent (In Minutes): 45 Coding Level of Care Code 04753 INP/OBS DISCH >30 MIN Diagnoses No pertinent past medical history Z78.9 H/O emergency section Z98.891 History of removal of cyst Z98.890 SVT (supraventricular tachycardia) I47.10
== END 2025-02-18 13:03 | disposition home or self-care (01) | DRG 310 ==
LOC: ED 09:12 → EDINP 15:29 → SUATTDRO 15:29 → 2S 18:59